=== PATIENT | male | born 1960 | race Caucasian/White ===

== ENCOUNTER 2020-11-16 11:42 | Emergency (ER) | payer OTHER ==
[2020-11-16 11:47] VITALS: TEMP 97.7; BMI 32.0
[2020-11-16] MEDS ORDERED: MAG HYDROX/AL HYDROX/SIMETH -MYLANTA- ORAL SUSPENSION PO ONE (12:30)
[2020-11-16] MEDS ORDERED: LACTATED RINGERS SOLUTION 1000 ML INFUS.BAG IV ONE (12:30)
[2020-11-16] MEDS ORDERED: ONDANSETRON 4 MG/2 ML VIAL IVPUSH ONE (12:30)
[2020-11-16] MEDS ORDERED: FAMOTIDINE 20 MG/50 ML IVPB 20 MG/50 ML MG IVPB ONE ×2 (12:30→12:33)
[2020-11-16] MEDS ORDERED: ONDANSETRON 4 MG/2 ML VIAL ONE (12:33)
[2020-11-16 13:14] LABS: BASO % 0.5 % (0-2.0); EOS % 2.1 % (0-4.5); HEMATOCRIT 42.9 % (35.4-49); HEMOGLOBIN 14.6 GM/dL (11.7-16.9); LYMPH % 20.2 % (8-40); MCH 30.4 pg (25.7-33.7); MCHC 34.1 g/dl (32.0-35.9); MEAN CELL VOLUME 89.2 fl (80-96); MEAN PLT VOLUME 8.7 fl (7.5-11.1); MONO % 8.7 % (3.8-10.2); NEUT % 68.5 % (42.8-82.8); PLATELET COUNT 249 K/MM3 (134-434); RBC 4.81 M/mm3 (4.00-5.60); RDW 14.1 % (11.9-15.9); WHITE BLOOD COUNT 10.2 K/mm3 (4.0-10.0)
[2020-11-16 13:31] LABS: CHLORIDE 108 mmol/L (98-107); SODIUM 139 mmol/L (136-145)
[2020-11-16 13:33] LABS: CALCIUM 8.7 mg/dL (8.5-10.1)
[2020-11-16 13:34] LABS: ALBUMIN 4.2 g/dl (3.4-5.0); ANION GAP 9 MMOL/L (8-16); BLOOD UREA NITROGEN 21.3 mg/dL (7-18); CO2 21 mmol/L (21-32); GLUCOSE,RANDOM 100 mg/dL (74-106); LIPASE 71 U/L (73-393)
[2020-11-16 13:37] LABS: CREATININE 0.8 mg/dL (0.55-1.3); SGOT/AST 123 U/L (15-37); SGPT/ALT 198 U/L (13-61)
[2020-11-16 13:38] LABS: BILIRUBIN,TOTAL 0.6 mg/dL (0.2-1); TOT PROT 7.1 g/dl (6.4-8.2)
[2020-11-16 13:40] LABS: ALK PHOS 104 U/L (45-117)
[2020-11-16 16:12] VITALS: BP 122/61; PULSE 69
== END 2020-11-16 16:12 | disposition home or self-care (01) ==
LOC: JER 11:42
PROC: 3E033GC Introduction of Other Therapeutic Substance into Peripheral Vein, Percutaneous Approach (ICD-10-PCS; principal; 2020-11-16)
PROC: 3E033GC Introduction of Other Therapeutic Substance into Peripheral Vein, Percutaneous Approach (ICD-10-PCS; 2020-11-16)
DX: R10.13 Epigastric pain (principal); K76.0 Fatty (change of) liver, not elsewhere classified
CPT/HCPCS: 36415; 74177-TC; 80053; 82550; 83605; 83690; 84484; 85025; 93005; 93010; 99285-25; Q9967

== ENCOUNTER 2025-03-14 16:11 | Emergency (ER) | payer OTHER ==
[2025-03-14 16:17] VITALS: RESP 16; TEMP 97.9; BMI 32.5
[2025-03-14] MEDS ORDERED: ACETAMINOPHEN 325 MG TABLET (FP) ONE (16:57)
[2025-03-14] MEDS: ACETAMINOPHEN 325 MG TABLET (FP) PO ONE (17:42)
[2025-03-14 19:31] VITALS: BP 101/82; PULSE 112
== END 2025-03-14 20:04 | disposition home or self-care (01) ==
LOC: JER 16:11
DX: M79.661 Pain in right lower leg (principal); M79.89 Other specified soft tissue disorders; R20.2 Paresthesia of skin; M25.571 Pain in right ankle and joints of right foot; G89.29 Other chronic pain
CPT/HCPCS: 73590-TC-RT-FY; 73610-TC-RT-FY; 73630-TC-RT-FY; 93971-TC-RT; 99284-25